=== PATIENT | female | born 1985 ===

== ENCOUNTER 2018-05-01 21:55 | Emergency (ER) | payer SELFPAY ==
--- NOTE | 2018-05-01 21:58 | ER Report ---
History and Physical Time Seen By MD: 21:57 HPI/ROS CHIEF COMPLAINT: Tooth pain HISTORY OF PRESENT ILLNESS: 33-year-old female presents complaining of 3 days of tooth pain. The right upper teeth. Patient has horrible dentition. She's been to the dentist. She's filling out paperwork for [employer] a payment plan. Patient notes no fever or chills. She denies difficulty swallowing. She describes 8/10 throbbing pain, which is preventing her from sleeping tonight. She's been taking ibuprofen and Tylenol without relief. Patient has leftover hydrocodone which she took without pain relief. REVIEW OF SYSTEMS: Respiratory: No cough, no dyspnea. Cardiovascular: No chest pain, no palpitations. Gastrointestinal: No vomiting, no abdominal pain. Musculoskeletal: No back pain. Allergies: Coded Allergies: No Known Drug Allergies (Unverified , 05/01/18) Home Meds Active Scripts Tramadol Hcl (TRAMADOL HCL) 50 Mg Tablet, 2 TAB PO Q6H PRN for PAIN, #12 MG TAKE 1-2 TABLETS BY MOUTH EVERY SIX HOURS NEEDED Prov:FELIX LEUNG DO 05/01/18 Amoxicillin (AMOXICILLIN) 500 Mg Capsule, 1 CAP PO TID for infection, #30 CAPSULE Prov:MADHUFELIX Winter DO 05/01/18 Reported Medications Propranolol Hcl (PROPRANOLOL HCL) 20 Mg Tablet, 20 MG PO TID, #15 TAB 05/01/18 Reviewed Nurses Notes: Yes Old Medical Records Reviewed: Yes Constitutional Vital Sign - Last 24 Hours 05/01/18 21:59 Pulse 86 Resp 14 B/P (MAP) 133/86 Pulse Ox 96 O2 Delivery Room Air Physical Exam Vital signs stable, afebrile, pulse ox normal General Appearance: The patient is alert, has no immediate need for airway protection and no current signs of toxicity. Mild distress HEENT: Pupils equal and round no injection. TMs normal, TMJs nontender, examination of the oropharynx reveals numerous teeth missing, numerous teeth eroded to the gumline with black necrotic areas. Patient points to the right upper area with there are 2 teeth eroded to the gumline with surrounding erythema. Respiratory: Chest is non tender, lungs are clear to auscultation. Cardiac: regular rate and rhythm, no murmur Gastrointestinal: Abdomen is soft and non tender, no masses, bowel sounds normal. Musculoskeletal: Neck: Neck is supple and non tender. No lymphadenopathy, no induration of neck tissues Extremities have full range of motion and are non tender. Skin: No rashes or lesions. DIFFERENTIAL DIAGNOSIS: After history and physical exam differential diagnosis was considered for toothache, tooth abscess, sinusitis, TMJ disorder, Medical Decision Making ED Course/Re-evaluation ED Course Patient was admitted to an examination room. H&P was done. The differential diagnosis was considered. On clinical examination, patient appears to have dental infection, toothache. She'll be covered with amoxicillin. She is advised to continue ibuprofen and Tylenol. She'll be given a limited supply of tramadol for temporary pain relief. Patient advised to follow-up with dentist as soon as possible. Decision to Disposition Date: May 01, 2018 Decision to Disposition Time: 22:10 Depart Departure Latest Vital Signs Vital Signs Date Time Temp Pulse Resp B/P (MAP) Pulse Ox O2 Delivery O2 Flow Rate FiO2 05/01/18 21:59 86 14 133/86 96 Room Air Impression: Primary Impression: Dental abscess Additional Impression: Poor dentition Condition: Improved Disposition: HOME OR SELF-CARE New Scripts Tramadol Hcl (TRAMADOL HCL) 50 Mg Tablet 2 TAB PO Q6H PRN for PAIN, #12 MG TAKE 1-2 TABLETS BY MOUTH EVERY SIX HOURS NEEDED Prov: FELIX LEUNG DO 05/01/18 Amoxicillin (AMOXICILLIN) 500 Mg Capsule 1 CAP PO TID for infection, #30 CAPSULE Prov: FELIX LEUNG DO 05/01/18 Patient Instructions: Dental Abscess (ED) Additional Instructions: Follow-up with dentist as soon as possible Problem Qualifiers FELIX LEUNG DO May 01, 2018 21:58
[2018-05-01 21:59] VITALS: BP 133/86
[2018-05-01] MEDS ORDERED: PROP20TA56 PO (22:02)
[2018-05-01] MEDS ORDERED: traMADol 50 MG TAB TH 2 TAB/BOTTLE PO ONE (22:10)
[2018-05-01] MEDS ORDERED: AMOXICILLIN 500 MG CAP PO ONE (22:10)
[2018-05-01] MEDS ORDERED: AMOX-362 PO (22:14)
[2018-05-01] MEDS ORDERED: TRAM-420 PO (22:15)
== END 2018-05-01 22:35 | disposition home or self-care (01) ==
LOC: ER 22:30
DX: K04.7 Periapical abscess without sinus (principal)
CPT/HCPCS: 99283; C9399